=== PATIENT | female | born 1985 | race Hispanic/Latino ===

== ENCOUNTER 2016-12-22 23:40 | Emergency (ER) | payer MEDICAID, OTHER ==
[2016-12-23 00:02] VITALS: BP 138/84; PULSE 75; RESP 16; TEMP 98.1; O2SAT 99; BMI 20.9
--- NOTE | 2016-12-23 00:23 | ED PDOC ---
Arrival/HPI - General Historian: Patient <Nasir Barnes - Last Filed: 12/23/16 00:44> <Tono Espana - Last Filed: 12/23/16 01:18> - General Chief Complaint: Substance Abuse Time Seen by Provider: 12/23/16 00:16 - History of Present Illness Narrative History of Present Illness (Text): 12/23/16 00:20 31yo female BIBA for substance abuse. Patient was found sleeping on the street. Patient admits to using PCP. Denies headache, hallucination, SI/HI, chest pain, SOB, any other complaint. (Nasir Barnes A) Past Medical History - Provider Review Nursing Documentation Reviewed: Yes - Infectious Disease Hx of Infectious Diseases: None - Tetanus Immunization Tetanus Immunization: Unknown - Cardiac Hx Cardiac Disorders: No Hx Heart Murmur: Yes Hx Hypertension: No - Pulmonary Hx Tuberculosis: No - Neurological HX Cerebrovascular Accident: No Hx Seizures: No - Endocrine/Metabolic Hx Hypothyroidism: Yes - Hematological/Oncological Hx Cancer: No - Genitourinary/Gynecological Hx Sexually Transmitted Diseases: No - Psychiatric Hx Depression: No Hx Emotional Abuse: No Hx Physical Abuse: No Hx Substance Use: Yes (PCP at times) - Past Surgical History Past Surgical History: No Previous - Suicidal Assessment Feels Threatened In Home Enviroment: No <Nasir Barnes - Last Filed: 12/23/16 00:44> Family/Social History - Physician Review Nursing Documentation Reviewed: Yes Family/Social History: Unknown Family HX Smoking Status: Light Smoker < 10 Cigarettes Daily Hx Alcohol Use: Yes Hx Substance Use: Yes (PCP at times) <Nasir Barnes - Last Filed: 12/23/16 00:44> Allergies/Home Meds <Nasir Barnes - Last Filed: 12/23/16 00:44> <Tono Espana - Last Filed: 12/23/16 01:18> Allergies/Adverse Reactions: Allergies No Known Allergies Allergy (Verified 11/13/15 07:32) Home Medications: Home Meds Medication Instructions Recorded Confirmed Levothyroxine [Synthroid] 0.05 mg PO DAILY 11/07/13 06/30/15 Review of Systems - Physician Review All systems were reviewed & negative as marked: Yes - Review of Systems Constitutional: Normal Eyes: Normal ENT: Normal Respiratory: Normal Cardiovascular: Normal Gastrointestinal: Normal Genitourinary Female: Normal Musculoskeletal: Normal Skin: Normal Neurological: Normal Endocrine: Normal Hemo/Lymphatic: Normal Psychiatric: Other (Drug use) <Nasir Barnes - Last Filed: 12/23/16 00:44> Physical Exam Vital Signs Reviewed: Yes Temperature: Afebrile Blood Pressure: Normal Pulse: Regular Respiratory Rate: Normal Appearance: Positive for: Well-Appearing, Non-Toxic, Comfortable, Other ( Slurred speech but AAO x3) Pain Distress: None Mental Status: Positive for: Alert and Oriented X 3 - Systems Exam Head: Present: Atraumatic, Normocephalic Pupils: Present: PERRL Extroacular Muscles: Present: EOMI Conjunctiva: Present: Normal Mouth: Present: Moist Mucous Membranes Neck: Present: Normal Range of Motion Respiratory/Chest: Present: Clear to Auscultation, Good Air Exchange. No: Respiratory Distress, Accessory Muscle Use Cardiovascular: Present: Regular Rate and Rhythm, Normal S1, S2. No: Murmurs Abdomen: Present: Normal Bowel Sounds. No: Tenderness, Distention, Peritoneal Signs Back: Present: Normal Inspection Upper Extremity: Present: Normal Inspection. No: Cyanosis, Edema Lower Extremity: Present: Normal Inspection. No: Edema Neurological: Present: GCS=15, CN II-XII Intact, Speech Normal Skin: Present: Warm, Dry, Normal Color. No: Rashes Psychiatric: Present: Alert, Oriented x 3, Normal Insight, Normal Concentration <Nasir Barnes - Last Filed: 12/23/16 00:44> Vital Signs Temp Pulse Resp BP Pulse Ox 12/23/16 00:01 98.1 F 75 16 138/84 99 Medical Decision Making <Nasir Barnes - Last Filed: 12/23/16 00:44> <Tono Espana - Last Filed: 12/23/16 01:18> ED Course and Treatment: 12/23/16 00:22 PT in ED for stated history. She was stable , AAO x3 and ambulatory with steady gait in ED. Plan is to observe patient in ED for sobriety. 12/23/16 00:44 PT eloped from the ED (Nasir Barnes) - PA / [employer] / Resident Statement / has reviewed & agrees with the documentation as recorded. <Tono Espana - Last Filed: 12/23/16 01:18> Disposition/Present on Arrival - Present on Arrival Any Indicators Present on Arrival: No History of DVT/PE: No History of Uncontrolled Diabetes: No Urinary Catheter: No History of Decub. Ulcer: No History Surgical Site Infection Following: None - Disposition Have Diagnosis and Disposition been Completed?: Yes Disposition Time: 00:40 <aNsir Banres - Last Filed: 12/23/16 00:44> <Tono Espana - Last Filed: 12/23/16 01:18> - Disposition Diagnosis: Drug abuse
== END 2016-12-23 00:45 | disposition home or self-care (01) ==
LOC: ED 23:40
DX: F19.10 Other psychoactive substance abuse, uncomplicated (principal)

== ENCOUNTER 2017-01-16 22:59 | Emergency (ER) | payer MEDICAID ==
[2017-01-16 23:02] VITALS: TEMP 97.8
[2017-01-16 23:04] VITALS: BMI 19.5
--- NOTE | 2017-01-16 23:22 | ED PDOC ---
Arrival/HPI - General Chief Complaint: Substance Abuse Time Seen by Provider: 01/16/17 23:18 Historian: Patient - History of Present Illness Narrative History of Present Illness (Text): 01/16/17 23:19 Patient presents to the emergency room for alcohol intoxication, patient admits to drinking 2 bottles of beer tonight prior to arrival. Otherwise patient has no other complaints, denies any trauma, fever, headache, chest pain, difficulty breathing, abdominal pain, vomiting, diarrhea, urinary symptoms. Denies any other ingestion including illicit drug use. Past Medical History - Provider Review Nursing Documentation Reviewed: Yes - Infectious Disease Hx of Infectious Diseases: None - Tetanus Immunization Tetanus Immunization: Unknown - Cardiac Hx Cardiac Disorders: No Hx Heart Murmur: Yes Hx Hypertension: No - Pulmonary Hx Tuberculosis: No - Neurological HX Cerebrovascular Accident: No Hx Seizures: No - Endocrine/Metabolic Hx Hypothyroidism: Yes - Hematological/Oncological Hx Cancer: No - Genitourinary/Gynecological Hx Sexually Transmitted Diseases: No - Psychiatric Hx Depression: No Hx Emotional Abuse: No Hx Physical Abuse: No Hx Substance Use: Yes (PCP at times) - Past Surgical History Past Surgical History: No Previous - Suicidal Assessment Feels Threatened In Home Enviroment: No Family/Social History - Physician Review Nursing Documentation Reviewed: Yes Family/Social History: No Known Family HX Smoking Status: Light Smoker < 10 Cigarettes Daily Hx Alcohol Use: Yes Hx Substance Use: Yes (PCP at times) Allergies/Home Meds Allergies/Adverse Reactions: Allergies No Known Allergies Allergy (Verified 11/13/15 07:32) Home Medications: Home Meds Medication Instructions Recorded Confirmed Unobtainable 01/17/17 01/17/17 Review of Systems - Review of Systems Constitutional: Normal. absent: Fatigue, Weight Change, Fevers Respiratory: Normal. absent: SOB, Cough Cardiovascular: Normal. absent: Chest Pain, Palpitations Gastrointestinal: Normal. absent: Abdominal Pain, Stool Changes, Appetite Changes Musculoskeletal: Normal. absent: Arthralgias, Back Pain, Neck Pain Skin: Normal. absent: Rash, Pruritis, Skin Lesions Physical Exam - Physical Exam Narrative Physical Exam (Text): 01/16/17 23:20 GENERAL APPEARANCE: Patient is awake, alert, oriented x 3, in no acute distress. Patient is ill kept in appearance. Odor of alcohol on patient's breathe. Speaking in full sentences. SKIN: Warm, dry; (-) cyanosis. EYES: (-) conjunctival pallor, (-) scleral icterus. ENMT: Mucous membranes moist. NECK: (-) tenderness, (-) stiffness, (-) lymphadenopathy. CHEST AND RESPIRATORY: (-) rales, (-) rhonchi, (-) wheezes; breath sounds equal bilaterally. HEART AND CARDIOVASCULAR: (-) irregularity; (-) murmur, (-) gallop. ABDOMEN AND GI: (-) distention. Bowel sounds active; (-) tenderness, (-) guarding, (-) rebound, (-) palpable masses, (-) CVA tenderness. EXTREMITIES: (-) deformity, (-) edema, (+) distal pulses. NEURO AND PSYCH: Mental status as above; (-) focal findings. Gait steady. Vital Signs Temp Pulse Resp BP Pulse Ox 01/16/17 23:02 97.8 F 70 18 145/75 99 Medical Decision Making ED Course and Treatment: 01/16/17 23:22 31 yo F presents for etoh intoxication. Patient is now admitting to taking PCP today. Previous visits reviewed, and patient has tested (+) for PCP in the past. Patient has no way of getting home at this time. Patient advised that she will have to be observed in the ER until she is clinically sober to be safely discharged. On re-evaluation, patient is more awake, alert and oriented x3. Is answering all questions appropriately, is calm and cooperative. Ambulating with a steady gait. Based on history, exam and diagnostic results plan will be for outpatient follow -up. Patient states she fully agrees with and understands discharge instructions. States that she agrees with the plan and disposition. Verbalized and repeated discharge instructions and plan. I have given the patient opportunity to ask any additional questions. Follow up with the clinic in 1-2 days without fail. Return to the emergency room at any time for any new or worsening symptoms. - PA / [employer] / Resident Statement MD/DO has reviewed & agrees with the documentation as recorded. Disposition/Present on Arrival - Present on Arrival Any Indicators Present on Arrival: No History of DVT/PE: No History of Uncontrolled Diabetes: No Urinary Catheter: No History of Decub. Ulcer: No History Surgical Site Infection Following: None - Disposition Have Diagnosis and Disposition been Completed?: Yes Diagnosis: Alcohol intoxication Disposition: HOME/ ROUTINE Disposition Time: 00:50 Patient Plan: Discharge Patient Problems: Current Active Problems Problem Status Onset Alcohol intoxication Acute Condition: STABLE
[2017-01-17 00:51] VITALS: BP 125/83; PULSE 72; RESP 17; O2SAT 97
== END 2017-01-17 01:00 | disposition home or self-care (01) ==
LOC: ED 22:59 → UNDOADMOB 23:29 → EROBSV 23:29 → ED 01-17 01:00
DX: F10.129 Alcohol abuse with intoxication, unspecified (principal); F17.210 Nicotine dependence, cigarettes, uncomplicated

== ENCOUNTER 2017-02-15 09:25 | Emergency (ER) | payer MEDICAID ==
[2017-02-15 09:36] VITALS: BMI 17.4
[2017-02-15 09:42] VITALS: BP 92/41; PULSE 62; RESP 20; TEMP 99; O2SAT 97
--- NOTE | 2017-02-15 10:10 | ED PDOC ---
Arrival/HPI - General Chief Complaint: Medical Clearance Time Seen by Provider: 02/15/17 09:38 - History of Present Illness Narrative History of Present Illness (Text): 02/15/17 10:09 31-year-old female brought in by EMS [place] Patient states that she works overnight, and she missed her train, and fell asleep. Patient denies any alcohol or drug use. Patient says that she has no complaints at this time and denies any suicidal or homicidal ideations. Past Medical History - Provider Review Nursing Documentation Reviewed: Yes - Infectious Disease Hx of Infectious Diseases: None - Tetanus Immunization Tetanus Immunization: Unknown - Reproductive Menopause: No - Cardiac Hx Cardiac Disorders: No Hx Heart Murmur: Yes Hx Hypertension: No - Pulmonary Hx Tuberculosis: No - Neurological HX Cerebrovascular Accident: No Hx Seizures: No - Endocrine/Metabolic Hx Hypothyroidism: Yes - Hematological/Oncological Hx Cancer: No - Genitourinary/Gynecological Hx Sexually Transmitted Diseases: No - Psychiatric Hx Depression: No Hx Emotional Abuse: No Hx Physical Abuse: No Hx Substance Use: Yes (PCP at times) - Past Surgical History Past Surgical History: No Previous - Suicidal Assessment Feels Threatened In Home Enviroment: No Family/Social History Family/Social History: Unknown Family HX Smoking Status: Light Smoker < 10 Cigarettes Daily Hx Alcohol Use: Yes Hx Substance Use: Yes (PCP at times) Allergies/Home Meds Allergies/Adverse Reactions: Allergies No Known Allergies Allergy (Verified 11/13/15 07:32) Home Medications: Home Meds Medication Instructions Recorded Confirmed Levothyroxine [Levoxyl] 0 mg PO DAILY 02/15/17 02/15/17 Physical Exam - Physical Exam Narrative Physical Exam (Text): - Review of Systems Constitutional: Normal. absent: Fatigue, Weight Change, Fevers Eyes: Normal ENT: denies sore throat, denies tristhmus Respiratory: Normal. absent: SOB, Cough, Sputum Cardiovascular: absent: Chest Pain, Palpitations, Syncope Gastrointestinal: Normal. absent: Abdominal Pain, Diarrhea, Nausea, Vomiting Genitourinary: Normal. absent: Dysuria, Frequency, Hematuria, vaginal bleeding Musculoskeletal: Normal. absent: Arthralgias, Back Pain, Neck Pain Skin: no rashes, no erythema Neurological: absent: Focal Weakness Endocrine: Normal Hemo/Lymphatic: Normal Psychiatric: No suicidal or homicidal ideations Physical exam Patient appears age appropriate in no distress, speaking full sentences without difficulty - Systems Exam Head: Present: Atraumatic, Normocephalic Pupils: Present: PERRL Extroacular Muscles: Present: EOMI Conjunctiva: Present: Normal Mouth: Present: Moist Mucous Membranes Neck: Present: Normal Range of Motion. No: MIDLINE TENDERNESS, Paraspinal Tenderness Respiratory/Chest: Present: Clear to Auscultation, Good Air Exchange. No: Respiratory Distress, Accessory Muscle Use, Tachypneic Cardiovascular: Present: Regular Rate and Rhythm, Normal S1, S2, Peripheal Pulses Present. No: Murmurs Abdomen: Present: Normal Bowel Sounds. No: Tenderness, Distention, Peritoneal Signs, Rebound, Guarding Back: Present: Normal Inspection. No: Midline Tenderness, Paraspinal Tenderness Upper Extremity: Present: Normal Inspection. No: Cyanosis, Edema Lower Extremity: Present: Normal Inspection. No: Edema Neurological: Present: GCS=15, Speech Normal, cranial nerves II through XII fully intact with no cerebellar abnormality, neurosensory fully intact. No focal neurological deficits. Skin: Present: Warm, Dry, Normal Color. No: Rashes Lymphatic: Present: OX3, NI, NC Psychiatric: Present: Alert, Oriented x 3, Normal Insight, Normal Concentration Vital Signs Reviewed: Yes Vital Signs Temp Pulse Resp BP Pulse Ox 02/15/17 09:33 99 F 62 20 92/41 L 97 02/15/17 09:25 99 F 62 20 92/41 L 97 Temperature: Afebrile Blood Pressure: Hypotensive Pulse: Regular Respiratory Rate: Normal Appearance: Positive for: Well-Appearing Pain Distress: None Mental Status: Positive for: Alert and Oriented X 3 Medical Decision Making ED Course and Treatment: 02/15/17 10:13 Patient in no distress and denies complaints. Ambulating and steady gait without difficulty. Patient is clinically sober and has no signs or symptoms of alcohol or drug withdrawal. Patient's mother in the emergency department and is taking her home. Pt states she understands to return to the ER right away for new or worsening symptoms or for inability to f/u with PMD or specialist as instructed. Patient states that she fully agrees with and understands discharge instructions. States that she agrees with the plan and disposition. Verbalized and repeated discharge instructions and plan. I have given the patient opportunity to ask any additional questions. Disposition/Present on Arrival - Present on Arrival Any Indicators Present on Arrival: No History of DVT/PE: No History of Uncontrolled Diabetes: No Urinary Catheter: No History of Decub. Ulcer: No History Surgical Site Infection Following: None - Disposition Have Diagnosis and Disposition been Completed?: Yes Diagnosis: General medical exam Disposition: HOME/ ROUTINE Disposition Time: 10:08 Patient Plan: Discharge Condition: GOOD Discharge Instructions (ExitCare): Normal Exam (ED) Additional Instructions: PLEASE RETURN TO THE EMERGENCY DEPARTMENT FOR NEW OR WORSENING SYMPTOMS. RETURN RIGHT AWAY IF YOU CANNOT FOLLOW UP WITH YOUR PRIMARY CARE DOCTOR, CLINIC, OR SPECIALIST IN 1-2 DAYS. Referrals: Sarah Rodríguez MD [Primary Care Provider] - Follow up with primary
== END 2017-02-15 10:20 | disposition home or self-care (01) ==
LOC: ED 09:25
DX: Z00.00 Encounter for general adult medical examination without abnormal findings (principal)

== ENCOUNTER 2017-03-05 03:33 | Emergency (ER) | payer MEDICAID ==
[2017-03-05 03:36] VITALS: BMI 16.7
[2017-03-05] MEDS ORDERED: Naloxone 0.4 mg/ml Inj (Adult) IM STA (04:25)
[2017-03-05 04:26] VITALS: TEMP 98.3; O2SAT 98
--- NOTE | 2017-03-05 04:29 | ED PDOC ---
Arrival/HPI - General Chief Complaint: Alcohol Ingestion Time Seen by Provider: 03/05/17 04:13 Historian: Patient - History of Present Illness Narrative History of Present Illness (Text): 03/05/17 04:29 A 31 year old female, with a history of alcohol abuse, presents to the emergency department for substance abuse. Patient denies any other complaints at this time. PMD: Dr. Rodríguez Symptom Onset: Sudden Symptom Course: Unchanged Activities at Onset: Rest Context: Home Past Medical History - Provider Review Nursing Documentation Reviewed: Yes - Infectious Disease Hx of Infectious Diseases: None - Tetanus Immunization Tetanus Immunization: Unknown - Cardiac Hx Cardiac Disorders: No Hx Heart Murmur: Yes Hx Hypertension: No - Pulmonary Hx Tuberculosis: No - Neurological HX Cerebrovascular Accident: No Hx Seizures: No - Endocrine/Metabolic Hx Hypothyroidism: Yes - Hematological/Oncological Hx Cancer: No - Genitourinary/Gynecological Hx Sexually Transmitted Diseases: No - Psychiatric Hx Depression: No Hx Emotional Abuse: No Hx Physical Abuse: No Hx Substance Use: Yes (PCP at times) - Past Surgical History Past Surgical History: No Previous - Suicidal Assessment Feels Threatened In Home Enviroment: No Family/Social History - Physician Review Nursing Documentation Reviewed: Yes Family/Social History: No Known Family HX Smoking Status: Light Smoker < 10 Cigarettes Daily Hx Alcohol Use: Yes Hx Substance Use: Yes (PCP at times) Allergies/Home Meds Allergies/Adverse Reactions: Allergies No Known Allergies Allergy (Verified 11/13/15 07:32) Home Medications: Home Meds Medication Instructions Recorded Confirmed Levothyroxine [Levoxyl] 0 mg PO DAILY 02/15/17 02/15/17 Review of Systems - Physician Review All systems were reviewed & negative as marked: Yes - Review of Systems Respiratory: absent: SOB Cardiovascular: absent: Chest Pain Physical Exam Vital Signs Reviewed: Yes Vital Signs Temp Pulse Resp BP Pulse Ox 03/05/17 05:34 54 L 18 117/61 98 03/05/17 03:33 98.3 F 88 17 111/55 L 98 Temperature: Afebrile Blood Pressure: Hypotensive Pulse: Regular Respiratory Rate: Normal Appearance: Positive for: Well-Appearing, Non-Toxic, Comfortable Pain Distress: None Mental Status: Positive for: Alert and Oriented X 3 Finger Stick Blood Glucose: 96 - Systems Exam Head: Present: Atraumatic, Normocephalic Pupils: Present: PERRL Extroacular Muscles: Present: EOMI Conjunctiva: Present: Normal Mouth: Present: Moist Mucous Membranes Neck: Present: Normal Range of Motion Respiratory/Chest: Present: Clear to Auscultation, Good Air Exchange. No: Respiratory Distress, Accessory Muscle Use Cardiovascular: Present: Regular Rate and Rhythm, Normal S1, S2. No: Murmurs Abdomen: Present: Normal Bowel Sounds. No: Tenderness, Distention, Peritoneal Signs Back: Present: Normal Inspection Upper Extremity: Present: Normal Inspection. No: Cyanosis, Edema Lower Extremity: Present: Normal Inspection. No: Edema Neurological: Present: GCS=15, CN II-XII Intact, Speech Normal Skin: Present: Warm, Dry, Normal Color. No: Rashes Psychiatric: Present: Alert, Oriented x 3, Normal Insight, Normal Concentration Medical Decision Making ED Course and Treatment: 03/05/17 04:26 Impression: A 31 year old female with substance abuse. Plan: -- Narcan -- Reassess and disposition Progress Notes: Re-evaluation Time: 06:30 Reassessment Condition: Re-examined, Improved - Medication Orders Current Medication Orders: Discontinued Medications Naloxone HCl (Narcan) 0.4 mg IM STAT STA Stop: 03/05/17 04:26 - Scribe Statement The provider has reviewed the documentation as recorded by the Diego Bal Provider Scribe Attestation: All medical record entries made by the Scribe were at my direction and personally dictated by me. I have reviewed the chart and agree that the record accurately reflects my personal performance of the history, physical exam, medical decision making, and the department course for this patient. I have also personally directed, reviewed, and agree with the discharge instructions and disposition. Disposition/Present on Arrival - Present on Arrival Any Indicators Present on Arrival: No History of DVT/PE: No History of Uncontrolled Diabetes: No Urinary Catheter: No History of Decub. Ulcer: No History Surgical Site Infection Following: None - Disposition Have Diagnosis and Disposition been Completed?: Yes Diagnosis: Drug abuse Disposition: HOME/ ROUTINE Disposition Time: 06:30 Condition: GOOD Discharge Instructions (ExitCare): Polysubstance Abuse (ED) Referrals: Sarah Rodríguez MD [Primary Care Provider] - Follow up with primary
[2017-03-05 05:35] VITALS: BP 117/61; PULSE 54; RESP 18
== END 2017-03-05 07:04 | disposition home or self-care (01) ==
LOC: ED 03:33
DX: F19.10 Other psychoactive substance abuse, uncomplicated (principal)